=== PATIENT | female | born 2000 | race Caucasian/White ===

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

== ENCOUNTER 2021-01-21 17:09 | Emergency (ER) | payer MEDICAID ==
[~2021-01-21] VITALS: Ht 180.3 cm; Wt 67.6 kg
[2021-01-21 18:43] LABS: EOSINOPHILS # (AUTO) 0.2 X10'3 (0-0.9)
[2021-01-21 18:45] LABS: BASOPHILS % (AUTO) 0.5 % (0-1); EOSINOPHILS % (AUTO) 2.3 % (0-6); HEMATOCRIT 39.1 % (35.0-45.0); HEMOGLOBIN 12.8 g/dl (12.0-16.0); LYMPHOCYTES # (AUTO) 2.2 X10'3 (1.1-4.8); LYMPHOCYTES % (AUTO) 26.2 % (21-51); MEAN CORPUSCULAR HEMOGLOBIN 27.9 PG (27.0-31.0); MEAN CORPUSCULAR HGB CONC 32.8 g/dL (33.0-36.5); MEAN CORPUSCULAR VOLUME 85.1 FL (78-98); MEAN PLATELET VOLUME 10.8 FL (7.4-10.4); MONOCYTES # (AUTO) 0.6 X10'3 (0-0.9); MONOCYTES % (AUTO) 7.4 % (2-12); NEUTROPHILS # (AUTO) 5.3 X10'3 (1.8-7.7); NEUTROPHILS % (AUTO) 63.6 % (42-75); PLATELET COUNT 202 X10'3 (140-440); RED BLOOD COUNT 4.59 X10'6 (4.20-5.60); RED CELL DISTRIBUTION WIDTH 14.6 % (11.5-14.5); WHITE BLOOD COUNT 8.3 X10'3 (4.5-11.0)
[2021-01-21 19:01] LABS: ALANINE AMINOTRANSFERASE 31 U/L (12-78); ALBUMIN 4.1 G/DL (3.4-5.0); ALBUMIN/GLOBULIN RATIO 1.1 (1.1-1.5); ALKALINE PHOSPHATASE 116 IU/L (20-180); ANION GAP 9 (8-16); ASPARTATE AMINO TRANSFERASE 22 U/L (10-37); BILIRUBIN,TOTAL 0.6 MG/DL (0.1-1.0); BLOOD UREA NITROGEN 8 MG/DL (7-18); BUN/CREATININE RATIO 9.2 (6.6-38.0); CALCIUM 9.5 MG/DL (8.5-10.1); CHLORIDE 107 MMOL/L (99-107); CREATININE 0.87 MG/DL (0.40-0.90); GLUCOSE 92 MG/DL (70-104); POTASSIUM 3.3 MMOL/L (3.5-5.1); SODIUM 141 MMOL/L (135-145); TOTAL CARBON DIOXIDE 25.2 MMOL/L (24-32); TOTAL PROTEIN 7.8 G/DL (6.4-8.2); eGFR 84 ML/MIN
--- NOTE | 2021-01-21 19:30 | NUR ---
Dr. Blackman at bedside discussing diagnostic results with patient and her mom and answering their questions, per no IV.
[2021-01-21] MEDS ORDERED: LIDOcaine Viscous 15ml cup MM ONE (20:00)
[2021-01-21] MEDS ORDERED: famotidine 20mg tablet PO ONE (20:00)
[2021-01-21] MEDS ORDERED: mag hydrox/Alum hydrox/simeth 30ml oral suspension PO ONE (20:00)
[2021-01-21] MEDS ORDERED: OMEP40CA21 PO (20:34)
[2021-01-21 20:58] VITALS: BP 101/46
== END 2021-01-21 21:05 | disposition home or self-care (01) ==
LOC: ER 17:10
DX: R00.2 Palpitations (principal); R07.89 Other chest pain; K21.9 Gastro-esophageal reflux disease without esophagitis; Z87.440 Personal history of urinary (tract) infections; Z98.890 Other specified postprocedural states; Z79.899 Other long term (current) drug therapy
CPT/HCPCS: 71045; 80053; 83880; 84484; 85025; 93005; 99285

== ENCOUNTER 2022-12-23 18:06 | Emergency (ER) | payer MEDICAID ==
[~2022-12-23] VITALS: Ht 180.3 cm; Wt 79.4 kg
[~2022-12-23 18:06] MED LIST changes: +ALBU8.5H17 IH; -ALBU8.5H8 IH
[2022-12-23 18:14] VITALS: BP 141/100
--- NOTE | 2022-12-23 18:54 | NUR ---
[facility] NUMBER [id number]
== END 2022-12-23 19:13 | disposition home or self-care (01) ==
LOC: ER 18:07
DX: S60.811A Abrasion of right wrist, initial encounter (principal); Y04.8XXA Assault by other bodily force, initial encounter; Y93.89 Activity, other specified; Y92.89 Other specified places as the place of occurrence of the external cause; Y99.8 Other external cause status
CPT/HCPCS: 73110; 99283; A4565

== ENCOUNTER 2023-08-05 18:16 | Emergency (ER) | payer MEDICAID ==
[~2023-08-05] VITALS: Ht 180.3 cm; Wt 87.0 kg
[2023-08-05] MEDS ORDERED: ipratropium/albuterol 3ml nebule NEB ONE ×2 (18:55→20:40)
[2023-08-05] MEDS ORDERED: dexamethasone 4mg tablet PO ONE (19:40)
[2023-08-05 20:02] VITALS: BP 132/101
[2023-08-05 20:07] VITALS: PULSE 89; RESP 16; O2SAT 89
[2023-08-05 20:14] VITALS: PULSE 96; RESP 16; O2SAT 100
[2023-08-05] MEDS ORDERED: ALBU6.7H14 INH (20:58)
[2023-08-05] MEDS ORDERED: BENZ-38 PO (20:58)
[2023-08-05 21:25] VITALS: PULSE 83; RESP 18; O2SAT 98
[2023-08-05 21:31] VITALS: PULSE 103; RESP 18; O2SAT 100
[2023-08-06 06:23] VITALS: TEMP 98
== END 2023-08-05 21:45 | disposition home or self-care (01) ==
LOC: ER 18:17
DX: J45.901 Unspecified asthma with (acute) exacerbation (principal); J10.1 Influenza due to other identified influenza virus with other respiratory manifestations; Z20.822 Contact with and (suspected) exposure to COVID-19
CPT/HCPCS: 36415; 71045; 87502; 87503; 87811; 94640; 99284

== ENCOUNTER 2023-12-19 12:40 | Emergency (ER) | payer MEDICAID ==
[~2023-12-19] VITALS: Ht 180.3 cm; Wt 87.4 kg
[~2023-12-19 12:40] MED LIST changes: +ALBU6.7H14 INH
[2023-12-19 12:43] VITALS: BP 126/81; PULSE 71; O2SAT 98
[2023-12-19] MEDS ORDERED: NAPR-56 PO (13:38)
[2023-12-19] MEDS ORDERED: AMOX-101 PO (13:38)
[2023-12-19 13:48] VITALS: RESP 17; TEMP 98.7
[2023-12-19] MEDS ORDERED: DIF150T PO (14:34)
== END 2023-12-19 13:49 | disposition home or self-care (01) ==
LOC: ER 12:40
DX: K08.89 Other specified disorders of teeth and supporting structures (principal); J45.909 Unspecified asthma, uncomplicated; F31.9 Bipolar disorder, unspecified; Z79.899 Other long term (current) drug therapy; Z79.2 Long term (current) use of antibiotics
CPT/HCPCS: 99283

== ENCOUNTER 2025-05-18 19:19 | Emergency (ER) | payer MEDICAID ==
[~2025-05-18] VITALS: Ht 180.3 cm; Wt 84.1 kg
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
[2025-05-18 19:49] LABS: MEAN PLATELET VOLUME 10.1 FL (7.4-10.4); RED CELL DISTRIBUTION WIDTH 14.4 % (11.5-14.5)
[2025-05-18] MEDS: normal saline 1000ml 1,000 ML IV ONE (19:50)
--- NOTE | 2025-05-18 19:50 | ELECTROCARDIOGRAPH REPORT ---
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
[2025-05-18 20:01] LABS: CREATININE 0.69 MG/DL (0.40-0.90); PRO BRAIN NATRIURETIC PEPTIDE 167 PG/ML (0-125); TOTAL CARBON DIOXIDE 27.2 MMOL/L (24-32); eCRCL 142 ML/MIN; eGFR > 90 ML/MIN
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
--- NOTE | 2025-05-18 20:26 | RADIOLOGY REPORT ---
CHEST RADIOGRAPH Indication: CP Technique: 1 view Comparison: DI CHEST,SINGLE VIEW on DOS: 08/05/23, CHEST,SINGLE VIEW on DOS: 01/21/21 FINDINGS: Lines and Tubes: None. Lungs/Pleura: No focal consolidation, pleural effusion or pneumothorax. Cardiomediastinum: Unremarkable. Other: No acute osseous abnormality. IMPRESSION: 1. No acute cardiopulmonary abnormality.
[2025-05-18 20:39] LABS: URINE HCG NEGATIVE (NEG)
[2025-05-18 20:42] LABS: LEUKOCYTE ESTERASE ,URINE NEGATIVE (Neg); NITRITES, URINE NEGATIVE (Neg); OCCULT BLOOD,URINE NEGATIVE (Neg)
[2025-05-18 21:00] LABS: UA COLLECTION TYPE NON-SPECIFIED
[2025-05-18] MEDS: ketorolac trometh 15mg/ml vial 15 MG/ML ML IV ONE (21:08)
[2025-05-18] MEDS: metoclopramide 5 mg/ml inj IV ONE (21:12)
[2025-05-18] MEDS: acetaminophen 1,000mg/100ml IV 100 ML IV ONE (21:15)
[2025-05-18 21:20] VITALS: BP 92/52; PULSE 79; RESP 16; TEMP 99; O2SAT 93
== END 2025-05-18 21:22 | disposition home or self-care (01) ==
LOC: ER 19:20
DX: R55 Syncope and collapse (principal); F07.81 Postconcussional syndrome; F31.9 Bipolar disorder, unspecified; G89.29 Other chronic pain; J45.909 Unspecified asthma, uncomplicated; Z87.440 Personal history of urinary (tract) infections; Z79.899 Other long term (current) drug therapy; Z98.890 Other specified postprocedural states
CPT/HCPCS: 36415; 70450; 71045; 80048; 81003; 81025; 83880; 84484; 85025; 93005; 96361; 96374; 96375; 99285; J0131; J1200; J1885; J2765; J7030

== ENCOUNTER 2025-06-08 04:16 | Emergency (ER) | payer MEDICAID ==
[~2025-06-08] VITALS: Ht 180.3 cm; Wt 72.4 kg
--- NOTE | 2025-06-08 04:33 | ELECTROCARDIOGRAPH REPORT ---
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
--- NOTE | 2025-06-08 04:57 | RADIOLOGY REPORT ---
CHEST RADIOGRAPH Indication: CP Technique: 1 view Comparison: DI CHEST,SINGLE VIEW on DOS: 05/18/25, DI CHEST,SINGLE VIEW on DOS: 08/05/23, CHEST,SINGLE VIEW on DOS: 01/21/21 FINDINGS: Lines and Tubes: External leads. Lungs/Pleura: No focal consolidation, pleural effusion or pneumothorax. Cardiomediastinum: Unremarkable. Other: No acute osseous abnormality. IMPRESSION: 1. No acute cardiopulmonary abnormality.
--- NOTE | 2025-06-08 05:11 | Physician Documentation ---
History of Present Illness ~ Chief Complaint: Syncope Stated Complaint: SEE CHIEF COMPLAINT A ALS Time Seen by MD: 04:26 OK to notify your PCP?: Yes Primary Medical Doctor: Mellissa Church cardiology; [facility] Source: patient Mode of Arrival: EMS Exam Limitations: no limitations HPI Ms. Lara is a 24 y/o female with PMHx significant for POTS who presents to the ED via EMS from home for evaluation of a syncopal event and what appeared to be a seizure. She states that she was talking to her mother and friends and the next thing she remembers is waking up on the ground and being told she had passed out and that she may have had a seizure. No bowel/bladder incontinence. Arrived with a C-collar in place by EMS. No focal numbness/tingling/weakness. She states that she had a Sravan's Hard Lemonade just prior to the fall. She is without chest pain/pressure/palpitations or discomfort. No SOB or difficulty breathing. No ABD pain or N/V/D. 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 HEENT: NC/AT. PERRLA. No scleral icterus. MMM. No oral lesions. NECK: Supple. No JVD. CHEST: RRR. No M/G/T. LUNGS: CTA B. No W/R/R. ABD: Soft. NTND. + BS. No rebounding or guarding. BACK: No CVA TTP. EXT: No c/c/e. NEURO: Alert and oriented x 4. Cooperative. Sensorimotor intact x 4 extremities. Progress Results/Orders Results/Orders Orders - CAMERON LOCKE MD Chest,Single View (06/08/25 04:25) Monitor (06/08/25 04:25) Saline Lock (06/08/25 04:25) Oxygen (06/08/25 04:25) BMP (06/08/25 04:25) PBNP (06/08/25 04:25) Hs Troponin I W Calculations (06/08/25 04:25) Hs Troponin I W Calculations (06/08/25 06:25) Hs Troponin I W Calculations (06/08/25 07:25) Ct Cervical Spine (06/08/25 04:40) Ct Head (06/08/25 04:40) MG (06/08/25 04:40) Liver Panel (06/08/25 04:40) Urinalysis, Cult If Indicated (06/08/25 04:40) TSH (06/08/25 04:40) Hcg Serum Ql (06/08/25 04:40) Normal Saline 1000ml (0.9% Sodium Chlori (06/08/25 04:45) Completed Orders - CAMERON LOCKE MD Chest,Single View (06/08/25 04:25) Cbc/Diff (06/08/25 04:25) Electrocardiogram (06/08/25 04:25) Ct Cervical Spine (06/08/25 04:40) Ct Head (06/08/25 04:40) Vital Signs 06/08/25 04:20 Temp 97.2 Pulse 76 Resp 16 B/P (MAP) 87/57 Pulse Ox 100 O2 Flow Rate 0 Laboratory Tests Test 06/08/25 04:55 White Blood Count 9.1 Red Blood Count 4.32 Hemoglobin 12.6 Hematocrit 36.9 Mean Corpuscular Volume 85.4 Mean Corpuscular Hemoglobin 29.1 Mean Corpuscular Hemoglobin Concent 34.1 Red Cell Distribution Width 14.1 Platelet Count 206 Mean Platelet Volume 10.0 Neutrophils (%) (Auto) 48.2 Lymphocytes (%) (Auto) 37.8 Monocytes (%) (Auto) 9.1 Eosinophils (%) (Auto) 4.1 Basophils (%) (Auto) 0.8 Neutrophils # (Auto) 4.4 Lymphocytes # (Auto) 3.4 Monocytes # (Auto) 0.8 Eosinophils # (Auto) 0.4 Basophils # (Auto) 0.1 CBC Comment Chemistry Comments EKG/XRAY/CT/US/VASC/MRI EKG : Intepreting Monitor?: Yes EKG Rate: 80 EKG: NSR [place]: normal Hypertrophy: none Medical Decision Making Additional information obtaine: N/A Findings While here in the ED, she remained hemodynamically normal with ABC's intact and in NAD. She is afebrile and nontoxic. Neuro exam nonfocal. Unable to clear her C-spine as she just finished a can of Sravan's Hard Lemonade. I reviewed her labs and they are unremarkable. I also read her EKG and it shows NSR with a rate of 80 and is without signs suggetive of acute myocardial injury or ischemia. NCCT brain without acute intracranial pathology. I reviewed her CXR and there are no radiographic signs to suggest an acute cardiopulmonary process. CT C-spine nonacute. Her C-spine was therefore cleared at baseline. I have low clinical suspicion for a new seizure. With her history of POTS, her s/s appear most consistent with a syncopal episode with myoclonic jerks. She had no postictal periods or loss of bowel/bladder. No tongue biting. She was monitored closely here in the ED and has done well. She is tolerating PO intake well and is ambulating here in the department. She is safe for d/c home. Given follow-up and return instructions. She voiced understanding and agreement with d/c instructions. Differential Dx:Considerations: Include: anemia, CVA, cerebral thrombosis, dehydration, dysrhythmia, encephalopathy, hypoglycemia, hypovolemia, vasovagal, vertigo central, vertigo peripheral, vestibular neuronitis Departure Disposition: 01 HOME / SELF CARE / HOMELESS Impression: Primary Impression: Syncope Additional Impression: Dehydration Discharge Instructions: Dehydration, Elderly, [id number], Syncope, Adult Referrals: NO PRIMARY CARE PROVIDER (PCP) Comments Please follow-up with your family physician and return to the Emergency Department if there are any additional concerns. Education Educated: Patient, Family Educated regarding: diagnosis, treatment ACF Form Admit Criteria Met or Not Met: NO Signature Scribe Signature: N/A Attestation: N/A CAMERON LOCKE MD Jun 08, 2025 05:11
--- NOTE | 2025-06-08 05:17 | RADIOLOGY REPORT ---
EXAM: CT CT CERVICAL SPINE HISTORY: Trauma COMPARISON: CT CT HEAD on DOS: 05/18/25 CTDIvol 19.28 mGy, DLP 514.00 mGy*cm. TECHNIQUE: Multiple axial CT images of the spine were obtained using bone algorithm. Axial and coronal reformatting was done. Bone and soft tissue windows were reviewed. FINDINGS: Slight reversal of normal cervical lordosis. No CT evidence of definite acute fracture, spinal dislocation, or significant appearing acute subluxation is seen. The visualized paraspinal soft tissues are grossly unremarkable. IMPRESSION: 1. No definite CT evidence of acute fracture or dislocation of the bony cervical spine.
[2025-06-08 05:18] LABS: MEAN PLATELET VOLUME 10.0 FL (7.4-10.4); RED CELL DISTRIBUTION WIDTH 14.1 % (11.5-14.5)
--- NOTE | 2025-06-08 05:18 | RADIOLOGY REPORT ---
EXAM: CT CT HEAD INDICATION: Trauma TECHNIQUE: CT of the head without intravenous contrast. Coronal and sagittal reformatted images are submitted. Radiation Dose : 1. Head: CT Dose: CTDI volume is 60.1 mGy. Dose-length product is 1099.8 mGy*cm The dose indicators for CT are the volume Computed Tomography (CT) Dose Index (CTDIvol) and the Dose Length Product (DLP), and are measured in units of mGy and mGy-cm, respectively. These indicators are not patient dose, but values generated from the CT scanner acquisition factors. The report includes radiation exposure data for exposures received during this examination. All CT scans at this medical facility are performed using dose modulation techniques as appropriate to a performed exam including the following: Automated exposure control was utilized; adjustment of the MA and/or KV according to patient size; and use of iterative reconstruction technique. COMPARISON: CT CT HEAD on DOS: 05/18/25. FINDINGS: There is no evidence of acute intracranial hemorrhage, extra-axial collection, mass effect, midline shift, herniation or hydrocephalus. The ventricles, sulci and cisterns are age appropriate. The reeves-white differentiation is intact. There is low-lying cerebellar tonsillar herniation which projects 8 mm below the foramina magnum. The visualized paranasal sinuses and mastoid air cells are clear. No depressed calvarial fracture. The surrounding soft tissues are unremarkable. IMPRESSION: 1. No evidence of acute intracranial abnormality. 2. Chiari 1 malformation.
[2025-06-08] MEDS: normal saline 1000ml 1,000 ML IV ONE (05:27)
[2025-06-08 05:31] LABS: CREATININE 0.82 MG/DL (0.40-0.90); TOTAL CARBON DIOXIDE 27.2 MMOL/L (24-32); eCRCL 119 ML/MIN; eGFR 86 ML/MIN
[2025-06-08 05:42] LABS: PRO BRAIN NATRIURETIC PEPTIDE 33 PG/ML (0-125)
[2025-06-08 06:38] VITALS: BP 102/49; PULSE 68; RESP 17; TEMP 97.2; O2SAT 98
== END 2025-06-08 06:40 | disposition home or self-care (01) ==
LOC: ER 04:16
DX: R55 Syncope and collapse (principal); E86.0 Dehydration; J45.909 Unspecified asthma, uncomplicated; G89.29 Other chronic pain; F31.9 Bipolar disorder, unspecified; Z87.440 Personal history of urinary (tract) infections; Z98.890 Other specified postprocedural states; Z79.899 Other long term (current) drug therapy
CPT/HCPCS: 36415; 70450; 71045; 72125; 80048; 80076; 83735; 83880; 84443; 84484; 85025; 93005; 96360; 99285; J7030